=== PATIENT | male | born 1970 | race Caucasian/White ===

== ENCOUNTER 2018-01-09 22:30 | Emergency (ER) | payer SELFPAY ==
[2018-01-09] MEDS ORDERED: Ketorolac 30 MG/ML SDV IVPUSH ONE (22:49)
[2018-01-09] MEDS ORDERED: Sodium Chloride 0.9% 2.5 ML Syringe FLUSH PRN (22:49)
[2018-01-09] MEDS ORDERED: Sodium Chloride 0.9% 10 ML Syringe FLUSH PRN (22:49)
--- NOTE | 2018-01-09 22:54 | EDM.PDOC ---
ED HPI GENERAL MEDICAL PROBLEM - General Chief Complaint: Skin Complaint Stated Complaint: PAIN/SWOLLEN LT ELBOW Time Seen by Provider: 01/09/18 22:36 - History of Present Illness INITIAL COMMENTS - FREE TEXT/NARRATIVE: HISTORY AND PHYSICAL: History of present illness: The patient is a 48-year-old male with no stated medical problems who is up-to- date on his tetanus shot and presents with swelling and pain to his left elbow that started 2 days ago and redness that started yesterday and increased in severity today. He's had subjective fevers and chills but no chest pain shortness of breath nausea vomiting and no neurosensory changes in the extremity. 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 He says initially it was just swollen and painful and the redness started yesterday. He is taking Aleve 3 hours ago and is currently afebrile. Has no other systemic complaints and denies any direct trauma to the area. Patient states that there is discomfort when he tries to move the elbow but he is able to range of motion is just uncomfortable. Review of systems: As per history of present illness and below otherwise all systems reviewed and negative. Past medical history: As per history of present illness and as reviewed below otherwise noncontributory. Surgical history: As per history of present illness and as reviewed below otherwise noncontributory. Social history: No reported history of drug or alcohol abuse. Family history: As per history of present illness and as reviewed below otherwise noncontributory. Physical exam: HEENT: Atraumatic, normocephalic, , negative for conjunctival pallor or scleral icterus, mucous membranes moist, throat clear, neck supple, nontender, trachea midline. Lungs: Clear to auscultation, breath sounds equal bilaterally, chest nontender. Heart: S1S2, regular rate and rhythm no overt murmurs Abdomen: Soft, nondistended, nontender. NABS Pelvis: Deferred Genitourinary: Deferred. Rectal: Deferred. Extremities: Atraumatic full range of motion of all extremities and no palpable bony deformities. There is numerous tattoos on the patient's upper extremities bilaterally. At the left elbow at the olecranon there is a circular area of swelling and erythema with warmth but is well demarcated and is not streaking up the arm. There is no crepitus no bony defects or tenderness with the bone but there is tenderness with palpation of this soft tissue area. There is swelling of this area. There is no axillary lymphadenopathy. The legs are, negative for cords or calf pain. Neurovascular unremarkable. Neuro: Awake, alert, oriented. Cranial nerves II through XII unremarkable. Cerebellum unremarkable. Motor and sensory unremarkable throughout. Exam nonfocal. Diagnostics: X-ray left elbow, CBC Therapeutics: IV Toradol and vancomycin sling Patient is aware of all testing results and the need to closely monitor his temperature and take antibiotics. I stressed my concern about the slight elevation in the white cell count and the need for close follow-up. I will give him tomorrow off work and prescribed Bactrim and clindamycin for home which she can start tomorrow. Impression: Olecranon bursitis with cellulitis Definitive disposition and diagnosis as appropriate pending reevaluation and review of above. Left elbow Pain Score (Numeric/FACES): 6 - Related Data Allergies Allergy/AdvReac Type Severity Reaction Status Date / Time No Known Allergies Allergy Verified 01/09/18 22:35 Home Meds: Home Meds . [No Known Home Meds] 06/25/16 [History] Past Medical History - Past Health History Medical/Surgical History: Denies Medical/Surgical History HEENT History: Reports: Other (See Below) Other HEENT History: wears reading glasses Cardiovascular History: Reports: None Respiratory History: Reports: None Gastrointestinal History: Reports: None Genitourinary History: Reports: None Musculoskeletal History: Reports: Fracture Neurological History: Reports: None Psychiatric History: Reports: None Endocrine/Metabolic History: Reports: None Hematologic History: Reports: None Immunologic History: Reports: None Oncologic (Cancer) History: Reports: None Dermatologic History: Reports: None - Past Surgical History Head Surgeries/Procedures: Reports: None HEENT Surgical History: Reports: None Cardiovascular Surgical History: Reports: None Respiratory Surgical History: Reports: None GI Surgical History: Reports: None Male Surgical History: Reports: None Endocrine Surgical History: Reports: None Neurological Surgical History: Reports: None Musculoskeletal Surgical History: Reports: ORIF Other Musculoskeletal Surgeries/Procedures:: left clavicle Oncologic Surgical History: Reports: None Dermatological Surgical History: Reports: None Social & Family History - Family History Family Medical History: Noncontributory - Tobacco Use Smoking Status *Q: Current Every Day Smoker Years of Tobacco use: 30 Packs/Tins Daily: 1.5 - Caffeine Use Caffeine Use: Reports: Coffee - Recreational Drug Use Recreational Drug Use: No ED ROS GENERAL - Review of Systems Review Of Systems: ROS reveals no pertinent complaints other than HPI. ED EXAM, SKIN/RASH Exam: See Below (see dictation) Course - Vital Signs Last Recorded V/S: Last Vital Signs Temp 36.8 C 01/09/18 22:35 Pulse 103 H 01/09/18 22:35 Resp 16 01/09/18 22:35 BP 126/87 01/09/18 22:35 Pulse Ox 96 01/09/18 22:35 - Orders/Labs/Meds Orders: Active Orders 24 hr Category Date Time Status Elbow Min 3V Lt [CR] Stat Exams 01/09/18 22:49 Taken Sodium Chloride 0.9% [Saline Flush] Med 01/09/18 22:49 Active 10 ml FLUSH ASDIRECTED PRN Sodium Chloride 0.9% [Saline Flush] Med 01/09/18 22:49 Active 2.5 ml FLUSH ASDIRECTED PRN Vancomycin [Vancocin] 1 gm Med 01/09/18 22:49 Active Sodium Chloride 0.9% [Normal Saline] 250 ml IV ONETIME DME for Discharge [COMM] Stat Oth 01/09/18 22:54 Ordered Saline Lock Insert [OM.PC] Stat Oth 01/09/18 22:48 Ordered Medication Orders Vancomycin HCl 1 gm/ Sodium (Chloride) 250 mls @ 250 mls/hr IV ONETIME ONE Stop: 01/09/18 23:48 Last Admin: 01/09/18 23:13 Dose: 250 mls/hr Sodium Chloride (Saline Flush) 10 ml FLUSH ASDIRECTED PRN PRN Reason: Keep Vein Open Sodium Chloride (Saline Flush) 2.5 ml FLUSH ASDIRECTED PRN PRN Reason: Keep Vein Open Labs: Laboratory Tests 01/09/18 Range/Units 22:53 WBC 15.87 H (4.0-11.0) K/uL RBC 4.74 (4.50-5.90) M/uL Hgb 15.8 (13.0-17.0) g/dL Hct 46.1 (38.0-50.0) % MCV 97.3 (80.0-98.0) fL MCH 33.3 H (27.0-32.0) pg MCHC 34.3 (31.0-37.0) g/dL RDW Std Deviation 45.0 (28.0-62.0) fl RDW Coeff of Emmanuelle 13 (11.0-15.0) % Plt Count 290 (150-400) K/uL MPV 9.10 (7.40-12.00) fL Neut % (Auto) 83.5 H (48.0-80.0) % Lymph % (Auto) 8.3 L (16.0-40.0) % [place] % (Auto) 7.1 (0.0-15.0) % Eos % (Auto) 1.0 (0.0-7.0) % Baso % (Auto) 0.1 (0.0-1.5) % Neut # (Auto) 13.3 H (1.4-5.7) K/uL Lymph # (Auto) 1.3 (0.6-2.4) K/uL [place] # (Auto) 1.1 H (0.0-0.8) K/uL Eos # (Auto) 0.2 (0.0-0.7) K/uL Baso # (Auto) 0.0 (0.0-0.1) K/uL Nucleated RBC % 0.0 /100WBC Nucleated RBCs # 0 K/uL Meds: Medications Generic Name Dose Route Start Last Admin Trade Name Freq PRN Reason Stop Dose Admin Vancomycin HCl 1 gm/ Sodium 250 mls @ 250 mls/hr 01/09/18 22:49 01/09/18 23: 13 Chloride IV 01/09/18 23:48 250 mls/hr ONETIME ONE Administration Sodium Chloride 10 ml 01/09/18 22:49 Saline Flush FLUSH ASDIRECTED PRN Keep Vein Open Sodium Chloride 2.5 ml 01/09/18 22:49 Saline Flush FLUSH ASDIRECTED PRN Keep Vein Open Discontinued Medications Generic Name Dose Route Start Last Admin Trade Name Freq PRN Reason Stop Dose Admin Ketorolac Tromethamine 30 mg 01/09/18 22:49 01/09/18 23:13 Toradol IVPUSH 01/09/18 22:50 30 mg ONETIME ONE Administration Departure - Departure Time of Disposition: 23:45 Disposition: Home, Self-Care 01 Condition: Good Clinical Impression: Olecranon bursitis of left elbow Cellulitis Qualifiers: Site of cellulitis: extremity Site of cellulitis of extremity: upper extremity Laterality: left Qualified Code(s): L03.114 - Cellulitis of left upper limb - Discharge Information Referrals: PCP,None [Primary Care Provider] - Forms: ED Department Discharge Additional Instructions: The following information is given to patients seen in the emergency department who are being discharged to home. This information is to outline your options for follow-up care. We provide all patients seen in our emergency department with a follow-up referral. The need for follow-up, as well as the timing and circumstances, are variable depending upon the specifics of your emergency department visit. If you don't have a primary care physician on staff, we will provide you with a referral. We always advise you to contact your personal physician following an emergency department visit to inform them of the circumstance of the visit and for follow-up with them and/or the need for any referrals to a consulting specialist. The emergency department will also refer you to a specialist when appropriate. This referral assures that you have the opportunity for followup care with a specialist. All of these measure are taken in an effort to provide you with optimal care, which includes your followup. Under all circumstances we always encourage you to contact your private physician who remains a resource for coordinating your care. When calling for followup care, please make the office aware that this follow-up is from your recent emergency room visit. If for any reason you are refused follow-up, please contact the [facility] emergency department at and ask to speak to the emergency department charge nurse. [facility] Primary care- Internal Medicine and [facility] [address] [place] [id number] [facility] Specialty Care--Orthopedic clinic Professional Building [address] [place] [id number] Ice and elevate the area and use sling for comfort but move the arm including the fingers hand and shoulder to prevent further swelling. Use all medications as prescribed. Take antibiotics until they're finished. These call and follow- up with one of our providers in the clinic either primary care or orthopedics as you choose early next week and return to ER as needed and as discussed. Continue to monitor the area of redness and return to ER as we discussed start extending over the next 24-30 hours. - My Orders Last 24 Hours: My Active Orders 01/09/18 22:48 Saline Lock Insert [OM.PC] Stat 01/09/18 22:49 Elbow Min 3V Lt [CR] Stat Sodium Chloride 0.9% [Saline Flush] 10 ml FLUSH ASDIRECTED PRN Sodium Chloride 0.9% [Saline Flush] 2.5 ml FLUSH ASDIRECTED PRN Vancomycin [Vancocin] 1 gm Sodium Chloride 0.9% [Normal Saline] 250 ml IV ONETIME 01/09/18 22:54 DME for Discharge [COMM] Stat - Assessment/Plan Last 24 Hours: My Active Orders 01/09/18 22:48 Saline Lock Insert [OM.PC] Stat 01/09/18 22:49 Elbow Min 3V Lt [CR] Stat Sodium Chloride 0.9% [Saline Flush] 10 ml FLUSH ASDIRECTED PRN Sodium Chloride 0.9% [Saline Flush] 2.5 ml FLUSH ASDIRECTED PRN Vancomycin [Vancocin] 1 gm Sodium Chloride 0.9% [Normal Saline] 250 ml IV ONETIME 01/09/18 22:54 DME for Discharge [COMM] Stat
[2018-01-10 03:44] VITALS: BP 118/68
--- NOTE | 2018-01-12 18:19 | CR ---
EXAM DATE: 01/09/18 PATIENT'S AGE: 48 Patient: COLLIN CHINCHILLA Facility: [place], [place] Site . Site : 1970 Study: XRay Extremity Left [id number] elbow-01/09/2018 11:07:24 PM Ordering Physician: Ivy Crowe Final Report: Indication: Left elbow pain and swelling Technique: Left elbow 3 views Comparison: None Findings: Bones: Alignment is normal. No fractures or bone lesions. Joint spaces: Joint spaces are well maintained. No degenerative changes. No sign of joint effusion. Soft tissues: Unremarkable. Impression: No findings to explain pain or swelling. Dictated by Juan Guerra MD @ Jan 09 2018 11:25PM (Electronic Signature) [email or web address]
== END 2018-01-10 00:20 | disposition home or self-care (01) ==
LOC: MW.ED 22:30
DX: M70.22 Olecranon bursitis, left elbow (principal); L03.114 Cellulitis of left upper limb; F17.210 Nicotine dependence, cigarettes, uncomplicated
CPT/HCPCS: 36415; 73080; 85025; 96365; 96375; 99283; A4566; J1885; J3370; J7050